=== PATIENT | female | born 1980 | race Caucasian/White ===

== ENCOUNTER 2017-07-09 07:09 | Inpatient (IN) | payer OTHER ==
[~2017-07-09 07:09] MED LIST: Buffered Lidocaine 0.9% SYRIN* 5 ML/SYR SYRINGE INTRADERM ONE; Famotidine IV* 10 MG/ML 2 ML (20 mg) IV ONE
[2017-07-09] MEDS ORDERED: ceFAZolin 1 GM ADVAN(*) 1 GM ADDV.VIAL IVPB ONE (07:16)
[2017-07-09] MEDS ORDERED: Famotidine IV* 10 MG/ML 2 ML (20 mg) ONE (07:16)
[2017-07-09] MEDS ORDERED: ceFAZolin 2 GM PREMIX (*) 0 ML IVPB ONE (07:17)
[2017-07-09] MEDS ORDERED: Clindamycin 900 MG IVPREMIX(* 900 MG/50 ML SDV IV ONE (07:17)
[2017-07-09] MEDS ORDERED: Buffered Lidocaine 0.9% SYRIN* 5 ML/SYR SYRINGE ONE (07:17)
[2017-07-09] MEDS ORDERED: ceFAZolin 2 GM PREMIX (*) 50 ML IVPB ONE (07:18)
[2017-07-09] MEDS ORDERED: Bupivacaine 0.25% SDV* 30 ML ONE ×2 (07:21→09:08)
[2017-07-09] MEDS ORDERED: Methylene Blue 0.5 %* 50 MG/10 ML AMP IV ONE (07:21)
[2017-07-09] MEDS ORDERED: Heparin VIAL(*) 5000 UNITS/ML VIAL (FIVE THOUSAND) ONE (07:27)
[2017-07-09] MEDS ORDERED: Scopolamine 1.5 mg* PATCH ONE (08:02)
[2017-07-09] MEDS ORDERED: Midazolam* 1 MG/ML 5 ML VIAL (5 MG) ONE (08:12)
[2017-07-09] MEDS ORDERED: fentaNYL* 50 MCG/ML 2 ML VIAL (100 MCG VIAL) ONE ×2 (08:12→08:54)
[2017-07-09] MEDS ORDERED: Rocuronium* 10 MG/ML VIAL ONE ×2 (08:12→08:18)
[2017-07-09] MEDS ORDERED: Succinylcholine* 20 MG/ML 10 ML VIAL ONE (08:17)
[2017-07-09] MEDS ORDERED: DiMENhydriNATE IV* 50 MG/ML VIAL ONE (08:17)
[2017-07-09] MEDS ORDERED: Lidocaine 2% PF * 5 ML VIAL ONE (08:17)
[2017-07-09] MEDS ORDERED: Ketorolac INJ* 30 MG/ML 1 ML VIAL ONE (08:17)
[2017-07-09] MEDS ORDERED: Propofol* 10 MG/ML 20 ML BTL IV PUSH ONE (08:17)
[2017-07-09] MEDS ORDERED: Ondansetron INJ* 2 MG/ML VIAL ONE (08:17)
[2017-07-09] MEDS ORDERED: Dexamethasone IV* 4 MG/ML 1 ML (4 MG) ONE (08:17)
[2017-07-09] MEDS ORDERED: Scopolamine 1.5 mg* PATCH TRANSDERM SCH (09:00)
[2017-07-09] MEDS ORDERED: DiMENhydriNATE IV* 50 MG/ML VIAL IV PUSH PRN (09:13)
[2017-07-09] MEDS ORDERED: Acetaminophen IV 1GM/100ML * 100 ML IVPB ONE (09:13)
[2017-07-09] MEDS ORDERED: HYDROmorphone* 1 MG/ML 1 ML SYR ONE ×2 (10:35→11:24)
--- NOTE | 2017-07-09 10:58 | SURGPN ---
Brief Operative Note - Surgery Procedures: Procedures Pre-OP Diagnoses: Clinically severe obesity Post-op Diagnosis: same Procedure: Laparoscopic Janine an Y gastric bypass Surgeon: Aly Asst: Susie LUNDBERG Anethesia: MALINA Hughes EBL: minimal IVF: 2100cc LR Specimen: none Drains: none
[2017-07-09] MEDS ORDERED: diPHENhydraMINE IV* 50 MG/ML 1 ml VIAL (BENADRYL) SLOW PUSH PRN (10:59)
[2017-07-09] MEDS ORDERED: HYDROcodone/ACET. 7.5/325 LIQ* 15 ML UDC PO PRN (10:59)
[2017-07-09] MEDS ORDERED: Ondansetron INJ* 2 MG/ML VIAL IV PRN (10:59)
[2017-07-09] MEDS ORDERED: Acetaminophen ADULT LIQ* 650 MG/20.3 ML UDC PO PRN (10:59)
[2017-07-09] MEDS ORDERED: Ketorolac INJ* 30 MG/ML 1 ML VIAL IV PRN (10:59)
[2017-07-09] MEDS ORDERED: Acetaminophen IV 1GM/100ML * 100 ML ONE (11:02)
[2017-07-09] MEDS: HYDROmorphone* 1 MG/ML 1 ML SYR IV PRN ×6 (11:28→22:10)
[2017-07-09] MEDS: Heparin VIAL(*) 5000 UNITS/ML VIAL (FIVE THOUSAND) SUBCUT SCH ×2 (14:38→22:11)
--- NOTE | 2017-07-09 16:54 | OP ---
CC: Shaheen Puga MD; [facility] * DATE OF OPERATION: 07/09/17 - ROOM #352 DATE OF : 82 SURGEON: Daniele Lu MD. [employer]CIAL [employer] CONTROL TECHNICIAN: TAMIKA Robles ANESTHESIOLOGIST: Dr. Hughes. ANESTHESIA: General anesthesia. PRE-OP DIAGNOSES: Clinically severe obesity and gastroesophageal reflux disease. POST-OP DIAGNOSES: Clinically severe obesity and gastroesophageal reflux disease. OPERATIVE PROCEDURE: Laparoscopic Janine-en-Y gastric bypass. ESTIMATED BLOOD LOSS: Minimal blood loss. FLUIDS: 2100 cc of crystalloid fluid given. SPECIMEN: None. DRAINS: None. CONDITION: The patient extubated and transferred to the PACU. DESCRIPTION OF PROCEDURE: The patient was identified in the preoperative area. Case discussed with her and her . I went over the risks, benefits, and alternatives again and she signed consent. Patient was marked, brought to the operating room and placed on the operating table in supine position. Preoperative antibiotics were given. Sequential devices were placed on bilateral lower extremities. General anesthesia was induced. Reid catheter was inserted and the patient's abdomen was prepped and draped in standard surgical fashion and a time- out was performed. Folds of the umbilicus were elevated anteriorly and a Veress needle was inserted into the abdominal cavity, which was then allowed to insufflate to a pressure of 15 mmHg. The patient tolerated the insufflation well. Periumbilical incision was made just to left of the midline and a 12-mm trocar was inserted. Laparoscope was inserted through this and there was no evidence of injury from the trocar insertion or from the Veress needle, which was then removed. Additional trocars were then placed in the following position, a 12 mm and a 5 mm in the left upper quadrant, a 12 mm and 5 mm in the right upper quadrant. Attention was turned towards the omentum. This was reflected superiorly and the transverse colon identified. From there, the ligament of Treitz was clearly identified and run retrograde approximately 60 cm. The bowel was transected at this site and a small enterotomy was made at the biliopancreatic limb. Next, the distal portion of this transected bowel was run approximately 75 cm, this would become the Janine limb. An enterotomy was made and a jejunojejunostomy was created with a 60 mm gonzales DORA stapling device. Common defect was reapproximated with 2-0 silk sutures in a [id number]-mm-djygn fashion and the mesenteric defect was similarly closed. Next, attention was turned towards the stomach and OG tube that had been placed to collapse the stomach was then removed. A Juan retractor was inserted through the subxiphoid incision and the liver was retracted anteriorly into the right. This exposed the gastroesophageal fat pad. This was retracted towards the right lower quadrant. A small hiatal hernia of this fat pad was identified. We opened up the investing fascia at the site of the left crura and identified this well. We were able to see the lateral portion of the hiatus and it did not seem to be significant hernia and attention was then turned towards the lesser curvature. Retrogastric window was made at approximately the third crossing vessel and the stomach transected with a 45 mm gonzales DORA stapling device. Additional 60 mm DORA stapling devices were utilized to complete the patch. This was done over the Herb tube. Two 60 mm firings were utilized. A third firing was transected through a most minimal stomach. The pouch appeared appropriate size. It remained in the abdomen. Review of the posterior portion of the stomach showed that this was not herniating. With hemostasis excellent, the Janine limb was then brought up to the apposition with the stomach pouch. 2-0 silk sutures were used for stay sutures and a gastrotomy was made over the Herb tube. Enterotomy was similarly made with the cautery and the gastrojejunostomy was created with a 30 mm gonzales DORA stapling device. The common defect showed minimal bleeding, which was stopped with a closure of the site and we closed this with interrupted 2-0 silk sutures in [id number] fashion. Next, the anastomosis was tested, clamping the Janine limb proximally and inserting the Herb tube. We inserted approximately 70 cc of methylene blue until this was dilated. No blue was identified at the anastomosis as we were placing a gauze at this site. Gauze was then removed as was the Herb tube and review of the abdomen showed that hemostasis was excellent. Abdomen was allowed to collapse. Trocar was removed under direct vision after the Juan retractor was removed and all skin incisions were reapproximated with skin gabrielle followed by sterile dressing. The patient tolerated the procedure well, was woken up in the OR, and transferred to the PACU in stable condition. [id number]/[facility] #: [id number] [place]
[2017-07-10] MEDS: HYDROmorphone* 1 MG/ML 1 ML SYR IV PRN ×3 (02:44→10:23)
[2017-07-10] MEDS: Heparin VIAL(*) 5000 UNITS/ML VIAL (FIVE THOUSAND) SUBCUT SCH ×2 (06:11→14:25)
[2017-07-10 06:53] LABS: Hematocrit 39 % (35-47); Mean Corpuscular HGB Conc 33 g/dl (31-36); Mean Corpuscular Hemoglobin 30 pg (27-31); Mean Corpuscular Volume 89 fL (80-97); Mean Platelet Volume 9 um3 (7.4-10.4); Red Blood Count 4.37 10^6/ul (4.0-5.4); Red Cell Distribution Width 13 % (10.5-15); White Blood Count 9.4 10^3/ul (3.5-10.8)
--- NOTE | 2017-07-10 08:58 | RAD ---
CPT II Codes: 6045F INDICATION: Status post gastric bypass. Approximately 1.4 minutes of fluoroscopy time was used. The oral and frontal phase of deglutition are grossly unremarkable. The esophagus appears normal in anatomy and function. The gastric pouch is intact. There is prompt emptying into the gastrojejunostomy. No evidence of extraluminal contrast is noted. IMPRESSION: No evidence of extraluminal contrast is noted. The patient is status post gastric bypass surgery.
--- NOTE | 2017-07-10 10:18 | PN ---
Progress Note - Progress Note Date of Service: 07/10/17 Note: Surgery Progress: S: POD #1. Seen earlier by Dr. Lu. Doing fairly well; pain controlled. No N/ V. Ambulating. O: Vital Signs - 8 hr 07/10/17 07/10/17 07/10/17 02:44 03:37 03:44 Temperature 97.7 F Pulse Rate 81 Respiratory 20 16 16 Rate Blood Pressure 126/75 (mmHg) O2 Sat by Pulse 97 Oximetry 07/10/17 07/10/17 07/10/17 04:00 06:00 06:10 Temperature Pulse Rate Respiratory 16 16 16 Rate Blood Pressure (mmHg) O2 Sat by Pulse 97 Oximetry 07/10/17 07/10/17 07/10/17 07:10 07:29 08:00 Temperature 98.3 F Pulse Rate 49 Respiratory 16 16 16 Rate Blood Pressure 120/64 (mmHg) O2 Sat by Pulse 97 96 Oximetry Intake and Output Last 24 Hours 07/08/17 07/09/17 07/10/17 07/11/17 06:59 06:59 06:59 06:59 Intake Total 4360 562 Output Total 725 125 Balance 3635 437 Weight 290 lb Intake: IV Fluids 4360 562 3GM ANCEF 100 900MG CLINDAMYCIN 50 LR 4210 562 Oral 0 Output: Reid 725 125 Other: # Bowel Movements 0 Heart: reg Lungs: clear ant Abd: lap sites clean w/ min drainage; BS hypoactive; soft; mild incisional tenderness UGI: ok A: s/p RYGB, doing well P: d/c Reid; start otoniel clears; cont ambulation
[2017-07-10] MEDS ORDERED: D5W 1/2 NS KCl 20 Meq 1000 ML* 1,000 ML IV SCH (11:00)
[2017-07-10 15:43] VITALS: BP 106/53
--- NOTE | 2017-07-10 16:52 | PN ---
Progress Note - Progress Note Date of Service: 07/10/17 SOAP: Subjective: Reports doing very well, ambulatory. Tolerating bariatric clear liquids, denies nausea, vomiting or abdominal pain. Wants to go home, sleeps better on her own bed. Objective: Awake and alert, in NAD VSS, afebrile Lungs CTA bilat. Heart RRR, no murmurs Abdomen soft, NT, ND. Incisions C/D/I. Assessment: POD#1, s/p laparoscopic RYGB, doing well Plan: D/C to home F/U with [facility] next Friday with Dr. Lu
--- NOTE | 2017-07-11 04:25 | DS ---
DISCHARGE SUMMARY: DATE OF ADMISSION: 07/09/17 DATE OF DISCHARGE: 07/10/17 PATIENT OF: Dr. Lu * (DICTATED BY TAMIKA MCNEILL) ADMISSION DIAGNOSIS: Morbid obesity. DISCHARGE DIAGNOSIS: Morbid obesity. ADMITTING PHYSICIAN: Dr. Daniele Lu. CONSULTATIONS: None. PROCEDURE: Laparoscopic Janine-en-Y gastric bypass on 07/09/17. BRIEF MEDICAL HISTORY: Key is a pleasant 36-year-old female, who was seen at the [facility] to consider weight loss surgery. The patient has suffered for the past 10 years or so from excessive body weight, for which she had associated comorbidities including hypertension and chronic lower back pain. She had tried multiple attempts to lose weight with dietary protocols, but unfortunately failed to maintain her weight loss. She was seen by Dr. Lu and was engaged with a bariatric program and was found to be a good candidate for a gastric bypass surgery for which she was scheduled on a later date. HOSPITAL COURSE: The patient was admitted through same-day surgery and was taken to the operating room on 07/09/17, where she underwent a laparoscopic Janine -en-Y gastric bypass that went essentially unremarkable. After recovery, the patient was transferred to the surgical floor in a stable condition. She was ambulatory out of bed and had minimal incisional pain. On the following morning , her Reid catheter was discontinued and she started on a bariatric clear liquid diet that she tolerated well. She continued to improve and she had no complaints of any abdominal pain, nausea, or vomiting. She was seen again this afternoon and the patient had the option of staying another night; however, she was doing remarkably well and she preferred to go home and sleep on her own bed , for which we will plan on discharging her tonya. DISCHARGE MEDICATIONS: Include [place] Elixir 5/325 mg per tablespoon, 1 tablespoon by mouth every 6 hours as needed for pain. PROBLEM LIST: Morbid obesity, status post laparoscopic Janine-en-Y gastric bypass on 07/09/17. TAMIKA MCNEILL [id number]/[facility] #: [id number] [facility]
[2017-07-12] MEDS ORDERED: Scopolomine PATCH Remove* 1 NOTE MISC PATCH OFF SCH (08:59)
== END 2017-07-10 17:20 | disposition home or self-care (01) | DRG 403 ==
LOC: AA 07:09 → SSU 13:57
PROVIDERS: ADMIT Surgery; ATTEND Surgery
PROC: 0D164ZA Bypass Stomach to Jejunum, Percutaneous Endoscopic Approach (ICD-10-PCS; principal; 2017-07-09 08:15)
DX: E66.01 Morbid (severe) obesity due to excess calories (principal); D32.9 Benign neoplasm of meninges, unspecified; G89.29 Other chronic pain; M54.5 Low back pain; G47.30 Sleep apnea, unspecified; K21.9 Gastro-esophageal reflux disease without esophagitis; Z83.3 Family history of diabetes mellitus; Z68.42 Body mass index [BMI] 45.0-49.9, adult; Z87.442 Personal history of urinary calculi
CPT/HCPCS: 36415; 74246; 81025; 85025; 94760; A9270-GY; C1776; J0330; J0690; J1100; J1170; J1240; J1644; J1885; J2250; J2405; J2704; J3010

== ENCOUNTER 2019-05-19 00:44 | Observation (INO) | payer OTHER ==
[2019-05-19] MEDS ORDERED: Famotidine IV* 10 MG/ML 2 ML (20 mg) IV SLOW PU ONE (03:16)
[2019-05-19] MEDS ORDERED: NS 0.9% 1000 ML** 1,000 ML IV ONE (03:16)
[2019-05-19] MEDS ORDERED: Metoclopramide IV* 5 MG/ML 2 ML VIAL IV SLOW PU ONE (03:16)
[2019-05-19] MEDS ORDERED: Morphine 4 MG/ML VIAL (1 ml) 4 MG/ML VIAL IV ONE (03:17)
[2019-05-19 03:49] LABS: ABS Basophils 0.1 10^3/ul (0-0.2); ABS Eosinophils 0.3 10^3/ul (0-0.6); ABS Lymphocytes 1.3 10^3/ul (1.0-4.8); ABS Monocytes 0.4 10^3/ul (0-0.8); Eosinophil % 4.2 %; Hematocrit 43 % (35-47); Hemoglobin 14.5 g/dL (12.0-16.0); Lymphocyte % 16.4 %; Mean Corpuscular HGB Conc 34 g/dL (31-36); Mean Corpuscular Hemoglobin 31 pg (27-31); Mean Corpuscular Volume 93 fL (80-97); Mean Platelet Volume 8.3 fL (7.4-10.4); Nucleated Red Blood Cells % 0.1; Platelet Count 234 10^3/uL (150-450); Red Blood Count 4.64 10^6 /uL (3.70-4.87); Red Cell Distribution Width 13 % (10-15); White Blood Count 8.2 10^3/uL (3.5-10.8)
[2019-05-19 03:59] LABS: Activated Partial Thrombo Time 34.1 seconds (26.0-38.0); INR 1.15 (0.82-1.09)
[2019-05-19 04:07] LABS: ALT 27 U/L (7-52); AST 23 U/L (13-39); Albumin/Globulin Ratio 1.5 (1-3); Alkaline Phosphatase 102 U/L (34-104); Amylase 49 U/L (29-103); Anion Gap 6 mmol/L (2-11); BUN/Creatinine Ratio 23.2 (8-20); Blood Urea Nitrogen 16 mg/dL (6-24); C Reactive Protein < 1.00 mg/L (<8.01); CO2 Carbon Dioxide 31 mmol/L (22-32); Calcium 9.4 mg/dL (8.6-10.3); Chloride 101 mmol/L (101-111); EGFR African American 115.8 (>60); EGFR Non-African American 95.7 (>60); Globulin 2.6 g/dL (2-4); Glucose 89 mg/dL (70-100); Potassium 4.2 mmol/L (3.5-5.0); Sodium 138 mmol/L (135-145); Total Protein 6.6 g/dL (6.4-8.9)
[2019-05-19 04:13] LABS: HCG Pregnancy < 0.60 mIU/mL
[2019-05-19] MEDS ORDERED: Iohexol 300* (CONTRAST) 10 ML SDV IV ONE (04:31)
--- NOTE | 2019-05-19 07:10 | ED ---
Progress - Progress Note Progress Note: This patient was signed out from Dr. Villagomez to Dr. Pereira at 0700 on 05/19/19, pending disposition, awaiting CT scans. Abdomen/Pelvis CT reveals IMPRESSION: The gallbladder is noted in to be distended. Right upper quadrant sonography may be performed for further evaluation. The patients condition is stable and will be admitted with Dx of abdominal pain. - Results/Orders Results/Orders: Abdomen/Pelvis CT reveals per radiologist, IMPRESSION: The gallbladder is noted in to be distended. Right upper quadrant sonography may be performed for further evaluation. ED physician has reviewed this radiology report. Gallbladder US reveals, per radiologist, IMPRESSION: 1. DISTENDED GALLBLADDER, NO EVIDENCE FOR ACUTE CHOLECYSTITIS. 2. PROMINENCE OF THE EXTRAHEPATIC DUCTS. ED physician has reviewed this radiology report. Re-Evaluation - Re-Evaluation First Eval Re-Evaluation Time: 08:00 Comment: Discussed results and plan of care with pt. Second Eval Re-Evaluation Time: 08:10 Comment: Told pt she would be getting a gallbladder US. Course/Dx - Course Course Of Treatment: This patient was signed out from Dr. Villagomez to Dr. Pereira at 0700 on 05/19/19, pending disposition, awaiting CT scans. Abdomen/Pelvis CT reveals IMPRESSION: The gallbladder is noted in to be distended. Right upper quadrant sonography may be performed for further evaluation. Discussed pt case with Dr. Lu, who accepts pt for admission. The patients condition is stable and will be admitted. - Diagnoses Provider Diagnoses: Abdominal pain - Provider Notifications Discussed Care Of Patient With: Daniele Lu Time Discussed With Above Provider: 08:08 Instructed by Provider To: Other - Discussed pt case with Dr. Lu who will come see the pt, and asked we get a gall bladder US. 09:54 - Dr. Lu accepts pt for admission Discharge - Sign-Out/Discharge Documenting (check all that apply): Patient Departure - Admit All imaging exams completed and their final reports reviewed: Yes Patient Received Moderate/Deep Sedation with Procedure: No - Discharge Plan - Attestation Statements Document Initiated by Scribe: Yes Documenting Scribe: Daiana Theodore Provider For Whom Scribe is Documenting (Include Credential): Dr. Valentin Pereira MD Scribe Attestation: IDaiana, scribed for Dr. Valentin Pereira MD on 05/19/19 at 1136. Status of Scribe Document: Ready
--- NOTE | 2019-05-19 07:37 | ED ---
Abdominal Pain/Female - HPI Summary HPI Summary: This patient is a 38 year old F presenting to [facility] with a chief complaint of ABD pain since 2 days ago. Pt states she went to work 2 days ago when the ABD pain began. She thought it was constipation so she went to the bathroom. Today, the pt notes the ABD radiated to her back. Pt denies vomiting. She has hx of kidney stones and had gastric bypass surgery 2 years ago. The patient rates the pain 7/10 in severity. Symptoms aggravated by nothing. Symptoms alleviated by nothing. - History of Current Complaint Chief Complaint: EDAbdPain Stated Complaint: STOMACH PAIN PER PT Time Seen by Provider: 05/19/19 03:10 Hx Obtained From: Patient Hx Last Menstrual Period: IUD ?: No Onset/Duration: Sudden Onset, Lasting Days - 2 Timing: Days - 2 Severity Currently: Severe Pain Intensity: 7 Pain Scale Used: 0-10 Numeric Radiates: Yes Radiates to: Back - ABD pain radiated to back today Aggravating Factor(s): Nothing Alleviating Factor(s): Nothing Associated Signs and Symptoms: Positive: Other: - positive - ABD pain radiating to back. Negative: Vomiting Allergies/Adverse Reactions: Allergies Allergy/AdvReac Type Severity Reaction Status Date / Time No Known Allergies Allergy Verified 05/19/19 00:50 Home Medications: Home Medications NK [No Home Medications Reported] 05/19/19 [History Confirmed 05/19/19] PMH/Surg Hx/FS Hx/Imm Hx Previously Healthy: No Endocrine/Hematology History: Denies: Hx Diabetes Cardiovascular History: Denies: Hx Hypertension Respiratory History: Reports: Hx Sleep Apnea GI History: Reports: Hx Gastroesophageal Reflux Disease - TAKES RANITIDINE, Hx Hiatal Hernia, Other GI Disorders - MORBID OBESITY, BMI 49.3 History: Reports: Hx Kidney Stones - 2008 Denies: Hx Renal Disease Sensory History: Reports: Hx Contacts or Glasses - GLASSES Denies: Hx Hearing Aid Opthamlomology History: Reports: Hx Contacts or Glasses - GLASSES Psychiatric History: Denies: Other Psychiatric Issues/Disorders - Surgical History Surgical History: Yes Surgery Procedure, Year, and Place[place] [facility] [place]PA[place] [facility] [place] 2014[place] [facility] [place] Anesthesia Reactions: No Infectious Disease History: No Infectious Disease History: Denies: Hx Clostridium Difficile, Hx Hepatitis, Hx Human Immunodeficiency Virus (HIV), Hx of Known/Suspected MRSA, Hx Shingles, Hx Tuberculosis, History Other Infectious Disease, Traveled Outside the [place] in Last 30 Days - Family History Known Family History: Positive: Diabetes - Social History Alcohol Use: None Hx Substance Use: No Substance Use Type: Reports: None Hx Tobacco Use: Yes Smoking Status (MU): Former Smoker Have You Smoked in the Last Year: No Review of Systems Negative: Fever Positive: Abdominal Pain - radiating to back starting today. Negative: Vomiting All Other Systems Reviewed And Are Negative: Yes Physical Exam - Summary Physical Exam Summary: VITAL SIGNS: Reviewed. GENERAL: Patient is a well-developed and nourished FEMALE who is lying comfortable in the stretcher. Patient is not in any acute respiratory distress. HEAD AND FACE: No signs of trauma. No ecchymosis, hematomas or skull depressions. No sinus tenderness. EYES: PERRLA, EOMI x 2, No injected conjunctiva, no nystagmus. EARS: Hearing grossly intact. Ear canals and tympanic membranes are within normal limits. MOUTH: Oropharynx within normal limits. NECK: Supple, trachea is midline, no adenopathy, no JVD, no carotid bruit, no c- spine tenderness, neck with full ROM CHEST: Symmetric, no tenderness at palpation LUNGS: Clear to auscultation bilaterally. No wheezing or crackles. CVS: Regular rate and rhythm, S1 and S2 present, no murmurs or gallops appreciated. ABDOMEN: Soft, LUQ tenderness. No signs of distention. No rebound no guarding, and no masses palpated. Bowel sounds are normal. EXTREMITIES: FROM in all major joints, no edema, no cyanosis or clubbing. NEURO: Alert and oriented x 3. No acute neurological deficits. Speech is normal and follows commands. SKIN: Dry and warm Triage Information Reviewed: Yes Vital Signs On Initial Exam: Initial Vitals Temp Pulse Resp BP Pulse Ox 97.8 F 69 16 115/82 100 05/19/19 00:46 05/19/19 00:46 05/19/19 00:46 05/19/19 00:46 05/19/19 00:46 Vital Signs Reviewed: Yes Diagnostics - Vital Signs Vital Signs Temp Pulse Resp BP Pulse Ox 05/19/19 07:10 61 106/61 99 05/19/19 07:00 58 97 05/19/19 06:40 56 100/68 99 05/19/19 06:10 54 111/75 98 05/19/19 06:00 63 98 05/19/19 05:52 57 103/66 98 05/19/19 05:41 68 101/62 97 05/19/19 05:10 50 109/70 99 05/19/19 04:40 49 112/71 98 05/19/19 04:10 54 101/67 96 05/19/19 04:00 63 97 05/19/19 03:48 66 109/68 100 05/19/19 03:37 18 05/19/19 03:13 80 100 05/19/19 03:10 122/64 05/19/19 00:46 97.8 F 69 16 115/82 100 - Laboratory Lab Results: Lab Results 05/19/19 05/19/19 05/19/19 Range/Units 03:45 03:45 03:45 WBC 8.2 (3.5-10.8) 10^3/uL RBC 4.64 (3.70-4.87) 10^6 /uL Hgb 14.5 (12.0-16.0) g/dL Hct 43 (35-47) % MCV 93 (80-97) fL MCH 31 (27-31) pg MCHC 34 (31-36) g/dL RDW 13 (10-15) % Plt Count 234 (150-450) 10^3/uL MPV 8.3 (7.4-10.4) fL Neut % (Auto) 73.3 % Lymph % (Auto) 16.4 % [facility] % (Auto) 5.5 % Eos % (Auto) 4.2 % Baso % (Auto) 0.6 % Absolute Neuts (auto) 6.0 (1.5-7.7) 10^3/ul Absolute Lymphs (auto) 1.3 (1.0-4.8) 10^3/ul Absolute Monos (auto) 0.4 (0-0.8) 10^3/ul Absolute Eos (auto) 0.3 (0-0.6) 10^3/ul Absolute Basos (auto) 0.1 (0-0.2) 10^3/ul Absolute Nucleated RBC 0.0 10^3/ul Nucleated RBC % 0.1 INR (Anticoag Therapy) 1.15 H (0.82-1.09) APTT 34.1 (26.0-38.0) seconds Sodium 138 (135-145) mmol/L Potassium 4.2 (3.5-5.0) mmol/L Chloride 101 (101-111) mmol/L Carbon Dioxide 31 (22-32) mmol/L Anion Gap 6 (2-11) mmol/L BUN 16 (6-24) mg/dL Creatinine 0.69 (0.51-0.95) mg/dL Est GFR ( Amer) 115.8 (>60) Est GFR (Non-Af Amer) 95.7 (>60) BUN/Creatinine Ratio 23.2 H (8-20) Glucose 89 (70-100) mg/dL Calcium 9.4 (8.6-10.3) mg/dL Total Bilirubin 1.00 (0.2-1.0) mg/dL AST 23 (13-39) U/L ALT 27 (7-52) U/L Alkaline Phosphatase 102 (34-104) U/L C-Reactive Protein < 1.00 (<8.01) mg/L Total Protein 6.6 (6.4-8.9) g/dL Albumin 4.0 (3.2-5.2) g/dL Globulin 2.6 (2-4) g/dL Albumin/Globulin Ratio 1.5 (1-3) Amylase 49 (29-103) U/L Lipase 22 (11.0-82.0) U/L Beta HCG, Quant < 0.60 mIU/mL Result Diagrams: 05/19/19 03:45 05/19/19 03:45 Lab Statement: Any lab studies that have been ordered have been reviewed, and results considered in the medical decision making process. - CT Abd/Pel CT Interpretation Completed By: Radiologist Summary of CT Findings: IMPRESSION: The gallbladder is noted in to be distended. Right upper quadrant sonography may be performed for further evaluation. Scattered trace ascites and nonspecific mesenteric edema. These findings were reviewed by Dr. Villagomez. Abdominal Pain Fem Course/Dx - Course Course Of Treatment: This patient is a 38 year old F presenting to [facility] with a chief complaint of ABD pain since 2 days ago. Pt states she. went to work 2 days ago when the ABD pain began. She thought it was constipation so she went to the bathroom. Today, the pt notes the ABD radiated to her back. Pt denies vomiting. She has hx of kidney stones and had gastric bypass surgery 2 years ago. The patient rates the pain 7/10 in severity. Symptoms aggravated by nothing. Symptoms alleviated by nothing. Physical exam shows LUQ tenderness. Lab results show INR 1.15 and BUN/creatinine ratio 23.2. Abd/Pel CT IMPRESSION : The gallbladder is noted in to be distended. Right upper quadrant sonography may be performed for further evaluation. Scattered trace ascites and nonspecific mesenteric edema. During ED course, pt was given Pepcid, Reglan, morphine, fluids. This pt is a signout from Dr. Villagomez to Dr. Pereira at [address] results. Discharge - Sign-Out/Discharge Documenting (check all that apply): Sign-Out Patient Signing out patient TO: Valentin Pereira - This pt is a signout from Dr. Villagomez to Dr. Pereira at 0700 05/19/[address] results Patient Received Moderate/Deep Sedation with Procedure: No - Discharge Plan Referrals: Shaheen Puga MD [Primary Care Provider] - - Attestation Statements Document Initiated by Scribe: Yes Documenting Scribe: Richard Guzman Provider For Whom Laurynibtriston is Documenting (Include Credential): Dr. Alex Villagomez MD Scribe Attestation: Richard Rosenbaum, scribed for Dr. Alex Villagomez MD on 05/19/19 at 0742. Status of Scribe Document: Ready
[2019-05-19] MEDS ORDERED: Ondansetron INJ* 2 MG/ML VIAL IV PRN (09:54)
[2019-05-19 11:14] LABS: Urine Appearance Clear; Urine Bilirubin Negative (Negative); Urine Blood Negative (Negative); Urine Color Yellow; Urine Glucose Negative (Negative); Urine Ketones Trace (Negative); Urine Nitrite Negative (Negative); Urine Protein Negative (Negative); Urine Specific Gravity 1.057 (1.010-1.030); Urine Urobilinogen Negative (Negative)
--- NOTE | 2019-05-19 11:19 | HP ---
CC: [facility]; Dr. Shaheen Puga HISTORY AND PHYSICAL: DATE OF ADMISSION: HISTORY OF PRESENT ILLNESS: Ms. Tereso Cisneros is a 38-year-old female 2 years status post Janine-en-Y g astric bypass procedure, who presented to the emergency room early this morning with worsening upper abdominal and mid abdominal pain. Patient states that the pain was somewhat of an acute onset the da y prior, led to mild nausea, but no vomiting as patient is unable to vomit since her gastric bypass. Pain does radiate to the back. It is alleviated with rest and also leaning forward. Patient denies any previous similar symptoms. She has decreased appetite. She is not passing gas. She thinks she had a bowel movement yesterday. PAST MEDICAL HISTORY: Clinically severe obesity, status post Janine-en-Y gastric bypass. PAST SURGICAL HISTORY: Janine-en-Y gastric bypass, lithotripsy on multiple occasions, esophageal dilat ation, left inguinal hernia repair. MEDICATIONS: Include vitamin, although patient states she does not take them routinely. ALLERGIES: No known drug allergies. SOCIAL HISTORY: She lives with her family. Children are older. She works regularly. She has also lost over 100 pounds since surgery. FAMILY HISTORY: History of diabetes and obesity within the family. REVIEW OF SYSTEMS: On review of systems, no shortness of breath or chest pain. No fevers or chills. Weight loss as expected over 100 pounds in the last 2 years. History of GERD-like symptoms, resolve d with weight loss. History of sleep apnea, which is also resolved. History of kidney stones both p reoperatively and postoperatively. No dysuria, obstipation as described above. No history of consti pation. No endocrine disorders. No bleeding or clotting disorders. No psychiatric illnesses. No c erebrovascular disease. PHYSICAL EXAMINATION GENERAL: She is alert and oriented x3, in no apparent distress. VITAL SIGNS: She is afebrile. Vital signs are stable. O2 sat is 100, respirations 16. HEAD, EYES, EARS, NOSE AND THROAT: Normocephalic, atraumatic. Sclerae anicteric. Mucous membranes a re moist. LUNGS: Clear to auscultation bilaterally. ABDOMEN: Soft, nondistended, tender on deep palpation in the left upper quadrant with negative rebou nd. No hernias or masses noted. Well-healed surgical incisions. Redundant skin without erythema or dermatitis. RECTAL: Not performed. EXTREMITIES: Within normal limits with no pitting edema. DIAGNOSTIC STUDIES/LAB DATA: Labs reviewed, within normal limits with a small exception of elevated INR at 1.15. H and H 14.5/43. Lipase 22. Patient underwent a CT scan of the abdomen and pelvis. The images were reviewed as well as a report with scant free fluid in the abdomen, but no free air. Appendix is unremarkable. No evidence of hyd ronephrosis. This was an IV and p.o. contrast study. Also, a nonspecific mesenteric edema was noted . Ultrasound of the gallbladder was also obtained. This report was reviewed, showed no gallstones and no evidence of pericholecystic fluid. She did have the prominence of the extrahepatic duct. IMPRESSION: Two years status post Janine-en-Y gastric bypass with good weight loss, now with acute ons et of abdominal pain that seems to be improving slowly with obstipation and decreased appetite. Diff erential diagnosis includes internal hernia. This may still be active or resolving itself. I do not believe the patient is at any risk for ischemia. She is at very low risk for ischemia of the gut. For this reason, I would prefer watchful waiting to see if she improves with bowel rest and IV fluids . If the patient's pain persists, we look towards taking her to the OR for diagnostic laparoscopy. Additional differential diagnosis includes biliary colic versus marginal ulceration. I believe this is less likely and again plan is for admission for observation status. Serial abdominal exams, IV fl uids, and n.p.o. status with plan for diagnostic laparoscopy if patient's pain does not improve. [id number]/[facility] #: [id number]
[2019-05-19] MEDS: Ketorolac INJ* 30 MG/ML 1 ML VIAL IV PRN ×2 (11:45→17:34)
[2019-05-19] MEDS: Lactated Ringers 1000 ML Bag* 1,000 ML IV SCH ×2 (11:55→19:23)
[2019-05-20] MEDS: Lactated Ringers 1000 ML Bag* 1,000 ML IV SCH ×2 (03:35→16:13)
[2019-05-20] MEDS: Ketorolac INJ* 30 MG/ML 1 ML VIAL IV PRN ×3 (03:40→22:56)
[2019-05-20] MEDS ORDERED: Morphine INJ* 2 MG/ML 1 ML SYRINGE (TWO MG - NEW SYRINGE VERSION) IV ONE (04:46)
[2019-05-20] MEDS ORDERED: Morphine INJ* 2 MG/ML 1 ML SYRINGE (TWO MG - NEW SYRINGE VERSION) ONE (05:07)
--- NOTE | 2019-05-20 05:57 | PN ---
Progress Note - Progress Note Date of Service: 05/20/19 SOAP: Subjective: Pt continues to have abdo pain. Wore today. No flatus Objective: Temp Pulse Resp BP Pulse Ox 98.3 F 53 20 105/62 96 05/20/19 03:25 05/20/19 03:25 05/20/19 05:09 05/20/19 03:25 05/20/19 03:25 a and o x3 abdo: soft/ ND/ tender at L; vol guarding; no rebound labs P Assessment: Abdo pain, r/o internal hernia Plan: diagnostic laparoscopy R/B/A discussed and pt wishes to proceed. NPO IVF
[2019-05-20] MEDS ORDERED: Propofol* 10 MG/ML 20 ML BTL ONE (06:01)
[2019-05-20] MEDS ORDERED: Midazolam* 1 MG/ML 5 ML VIAL (5 MG) ONE (06:01)
[2019-05-20] MEDS ORDERED: Cisatracurium* 2 MG/ML MDV 5 ML ONE (06:01)
[2019-05-20] MEDS ORDERED: Dexamethasone IV* 4 MG/ML 1 ML (4 MG) ONE (06:01)
[2019-05-20] MEDS ORDERED: Lidocaine 2% PF * 5 ML VIAL ONE (06:01)
[2019-05-20] MEDS ORDERED: fentaNYL* 50 MCG/ML 2 ML VIAL (100 MCG VIAL) ONE ×2 (06:01→08:27)
[2019-05-20] MEDS ORDERED: Ondansetron INJ* 2 MG/ML VIAL ONE (06:01)
[2019-05-20] MEDS ORDERED: Bupivacaine 0.25% W/EPI* 10 ML SDV ONE (06:04)
[2019-05-20] MEDS ORDERED: ceFAZolin 2 GM in NS PREMIX(*) 2 GM/100 ML BAG IVPB ONE (06:07)
[2019-05-20 06:45] LABS: ABS Basophils 0.1 10^3/ul (0-0.2); ABS Eosinophils 0.5 10^3/ul (0-0.6); ABS Lymphocytes 1.6 10^3/ul (1.0-4.8); ABS Monocytes 0.3 10^3/ul (0-0.8); ABS Neutrophils 1.8 10^3/ul (1.5-7.7); Eosinophil % 11.1 %; Hematocrit 37 % (35-47); Hemoglobin 12.5 g/dL (12.0-16.0); Mean Corpuscular HGB Conc 34 g/dL (31-36); Mean Corpuscular Hemoglobin 32 pg (27-31); Mean Corpuscular Volume 93 fL (80-97); Mean Platelet Volume 8.9 fL (7.4-10.4); Nucleated Red Blood Cells % 0.2; Platelet Count 184 10^3/uL (150-450); Red Blood Count 3.95 10^6 /uL (3.70-4.87); Red Cell Distribution Width 13 % (10-15); White Blood Count 4.3 10^3/uL (3.5-10.8)
[2019-05-20 06:56] LABS: Calcium 8.5 mg/dL (8.6-10.3); EGFR Non-African American 138.8 (>60); Potassium 3.8 mmol/L (3.5-5.0)
[2019-05-20] MEDS ORDERED: HYDROmorphone INJ1* 1 MG/ML SYRINGE IV PRN (07:08)
[2019-05-20] MEDS ORDERED: Naloxone* 0.4 MG/ML 1 ML VIAL IV PRN (07:08)
[2019-05-20] MEDS ORDERED: DiMENhydriNATE IV* 50 MG/ML VIAL IV PUSH PRN (07:08)
[2019-05-20] MEDS ORDERED: HYDROcodone/ACETAMIN 5-325 MG* 1 TAB PO PRN (07:08)
[2019-05-20] MEDS ORDERED: Neostigmine Methylsulfate* 3 MG/3 ML SYRINGE ONE (07:11)
[2019-05-20] MEDS ORDERED: Glycopyrrolate IV* 0.2 MG/ML 1 ML VIAL ONE (07:11)
[2019-05-20] MEDS: fentaNYL* 50 MCG/ML 2 ML VIAL (100 MCG VIAL) IV PRN ×2 (08:30→08:55)
--- NOTE | 2019-05-20 09:44 | BRIEFOPN ---
Brief Operative Note - Surgery Procedures: Procedures Pre-OP Diagnoses: abdominal pain Post-op Diagnosis: internal hernia, Procedure: Diagnostic laparoscopy, TREY, repair of internal hernia Surgeon: Aly Asst: none Anethesia: MALINA EBL: minimal IVF: see chart Specimen: none Drains: none Findings adhesions, internal hernia Complications: None
--- NOTE | 2019-05-20 11:17 | OP ---
CC: [facility]; Dr. Shaheen Puga * DATE OF OPERATION: 05/20/19 - ROOM #353 DATE OF : 82 SURGEON: Daniele Lu MD CORROSION CONTROL TECHNICIAN: None. ANESTHESIOLOGIST: Dr. Mitchell. ANESTHESIA: General. PRE-OP DIAGNOSIS: Abdominal pain. POST-OP DIAGNOSIS: Internal hernia. OPERATIVE PROCEDURE: Diagnostic laparoscopic lysis of adhesions and repair of internal hernia. ESTIMATED BLOOD LOSS: Minimal blood loss. IV FLUIDS: Minimal crystalloid fluid given. SPECIMEN: None. DRAINS: None. DESCRIPTION OF PROCEDURE: The patient is a 38-year-old female 2 year status post Janine-en-Y gastric bypass who presented yesterday with abdominal pain. She was admitted for observation. The patient's pain worsened in the overnight. I assessed her early this morning , and after examining her I recommended diagnostic laparoscopy. Outlined the details of procedure, going over the risks, benefits, and alternatives. I spoke about the possible complications, which include but not limited to bleeding, infection, need for open procedure, need for additional procedures, bowel injury, need for revision of anastomosis. The patient's questions were answered and consent was signed. The patient was taken to the operating room, placed on the operating table in supine position. Preoperative antibiotics given, sequential devices were placed on bilateral lower extremities, general anesthesia was induced, and the patient's abdomen was prepped and draped in standard surgical fashion. Time- out was performed. Right upper quadrant incision made at the 2 fingerbreadths below the costal margin in the midclavicular line. This was deepened down to the fascia, which was elevated and a Veress needle inserted into the abdominal cavity, which was allowed to insufflate to a pressure of 15 mmHg. The patient tolerated the insufflation well. The Veress needle was removed and a 5 mm trocar was then inserted to that site using an optical trocar. Laparoscope was inserted. There was no evidence of injury from the trocar insertion or from the Veress needle. 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 Attention was turned towards the terminal ileum, this was identified and the small bowel was run retrograde. Bowel was appearing normal. I did require some traction before we could reduce the jejunojejunostomy. We then followed 1 limb, which turned out the biliopancreatic limb to what appeared to be the ligament of Treitz at this point. Attention was then turned towards the stomach pouch, the Janine limb was then identified and this was run antegrade to the jejunojejunostomy. I did move some omentum from the transverse colon underneath this towards the left upper quadrant, but for the most part the initial retrograde traction had reduced the hernia and the bowel was in the appropriate orientation. Next review of the jejunojejunostomy showed that there were some adhesions to both omentum and transverse colon. These were taken down with sharp dissection. Once we were able to do this I could evaluate better where if there was internal hernia within this and there appeared to be. A running 2-0 silk suture was used to close defect within the jejunojejunostomy, taking mesentery off of common limb and suturing it to mesentery of the biliopancreatic. Next, I turned my attention towards the transverse colon. Transverse mesocolon was appreciated. I could see that this may have also become a defect and then put another running 2-0 silk suture taking mesentery of the Janine limb suturing it to the mesentery of the transverse mesocolon. Review of the abdomen showed appropriate orientation for the bowel. Again, all the bowel was viable. Chylous ascites was suctioned out, but I did not irrigate. The abdomen was allowed to collapse. Trocars removed under direct vision and all three skin incisions were reapproximated with 4-0 Monocryl subcuticular sutures. Steri- Strips and sterile dressing were applied. The patient woken up in the OR and transferred to the PACU in stable condition. [id number]/[facility] #: [id number] [place]
[2019-05-20] MEDS: oxyCODONE/Acetamin 5/325 MG* TAB PO PRN ×2 (18:28→22:39)
[2019-05-21] MEDS: Lactated Ringers 1000 ML Bag* 1,000 ML IV SCH (01:15)
[2019-05-21] MEDS: oxyCODONE/Acetamin 5/325 MG* TAB PO PRN ×3 (03:31→12:23)
[2019-05-21 12:13] VITALS: BP 107/55
--- NOTE | 2019-05-21 12:22 | PN ---
Progress Note - Progress Note Date of Service: 05/21/19 Note: S: Feeling well; min pain. Hal diet. Would like to go home. Passing flatus. O: Vital Signs - 8 hr 05/21/19 05/21/19 05/21/19 05:50 07:31 07:58 Temperature 98.4 F Pulse Rate 58 Respiratory 18 15 16 Rate Blood Pressure 111/64 (mmHg) O2 Sat by Pulse 97 Oximetry 05/21/19 05/21/19 05/21/19 08:00 09:58 12:12 Temperature Pulse Rate 67 Respiratory 16 16 15 Rate Blood Pressure 107/55 (mmHg) O2 Sat by Pulse 97 99 Oximetry Intake and Output Last 24 Hours 05/19/19 05/20/19 05/21/19 05/22/19 06:59 06:59 06:59 06:59 Intake Total 2145 5475 210 Output Total 750 2100 300 Balance 1395 3375 -90 Weight 180 lb 396 lb 13.313 oz 196 lb 6.4 oz Intake: IV Fluids 2145 3525 LR 1145 2711 NS 100ML, Cefazolin 2G 100 Oral 0 1950 210 Output: Urine 750 2100 300 Other: # Bowel Movements 0 Gen: sitting up in bed; appears comfortable Heart: reg Lungs: clear Abd: lap sites ok; +BS; soft; min incisional tenderness A: s/p lap repair internal hernia, doing well P: home today; instructions reviewed.
--- NOTE | 2019-05-21 13:34 | DS ---
CC: [facility] * DISCHARGE SUMMARY: DATE OF ADMISSION: 05/19/19 DATE OF DISCHARGE: 05/21/19 ATTENDING SURGEON: Dr. Daniele Lu * (TAMIKA Lloyd, dictating) HOSPITAL COURSE: Please refer to admission history and physical and operative note for details. Briefly, patient was admitted on 05/19/19, with abdominal pain. She is 2 years status post laparoscopic Janine-en-Y gastric bypass with Dr. Lu. The initial CT scan was relatively are unremarkable with some scattered trace ascites and nonspecific mesenteric edema. She was admitted for IV hydration, pain control and observation. Things stayed about the same, but seemed to worsen by the next morning and she was then taken to the operating room the morning of 05/20/[address] Lu, at which time she underwent laparoscopy with repair of an internal hernia. Postoperatively, she has done well with progressive tolerance of diet and improvement of pain. See separate progress note from the morning of discharge. She was given instructions regarding wound care, diet and activity. She has a followup at [facility] on Friday , 05/25/19. She was discharged to home in good condition. TAMIKA LLOYD [id number]/[facility] #: [id number] [place]
== END 2019-05-21 13:00 | disposition home or self-care (01) ==
LOC: ED 00:44 → SSU 09:54
PROVIDERS: ADMIT Surgery; ATTEND Surgery
DX: K46.9 Unspecified abdominal hernia without obstruction or gangrene (principal); K21.9 Gastro-esophageal reflux disease without esophagitis; E66.01 Morbid (severe) obesity due to excess calories; Z87.442 Personal history of urinary calculi; Z87.891 Personal history of nicotine dependence; Z98.84 Bariatric surgery status
CPT/HCPCS: 36415; 74177; 76705; 80048; 80053; 81003; 82150; 83690; 84702; 85025; 85610; 85730; 86140; 96361; 96374; 96375; 96376; 99285; A9270-GY; G0378; J0690; J1100; J1885; J2250; J2270; J2405; J2704; J2710; J2765; J3010; Q9967